=== PATIENT | female | born 2000 | race African-American/Black ===

== ENCOUNTER 2025-06-09 06:13 | Emergency (ER) | payer OTHER ==
[~2025-06-09] VITALS: Ht 167.6 cm; Wt 101.6 kg
[2025-06-09 06:20] VITALS: PULSE 88; RESP 16; TEMP 98.6
[2025-06-09] MEDS ORDERED: ACETAMINOPHEN 325 MG TAB ONE (06:37)
[2025-06-09] MEDS: ACETAMINOPHEN 325 MG TAB PO ONE (06:39)
[2025-06-09 06:41] LABS: PREGNANCY TEST, URINE POSITIVE (NEGATIVE)
[2025-06-09 06:42] LABS: LEUKOCYTE ESTERASE ,URINE NEGATIVE (NEGATIVE); PROTEIN,URINE DIPSTICK NEGATIVE (NEGATIVE); URINE UROBILINOGEN 0.2 mg/dL (0.2 - 1)
[2025-06-09 06:59] LABS: CORONAVIRUS COVID-19 AG POSITIVE (NEGATIVE)
[2025-06-09 07:33] LABS: EPITHELIAL CELLS,URINE RARE /LPF; WBC,URINE (MAN) 0-5 /HPF (0-5)
[2025-06-09 08:28] VITALS: BP 121/76; PULSE 72; RESP 18; O2SAT 100
== END 2025-06-09 08:26 | disposition home or self-care (01) ==
LOC: ER 06:19
DX: O98.511 Other viral diseases complicating pregnancy, first trimester (principal); U07.1 COVID-19; R51.9 Headache, unspecified; O99.331 Smoking (tobacco) complicating pregnancy, first trimester
CPT/HCPCS: 36415; 81001; 81025; 84702; 99283